=== PATIENT | male | born 1955 | race Caucasian/White ===

== ENCOUNTER 2020-06-13 19:23 | Emergency (ER) | payer OTHER ==
[2020-06-13 20:57] LABS: HEMOGLOBIN 11.9 gm/dl (14.0-17.5); RED BLOOD COUNT 3.95 M/UL (4.20-5.50); WHITE BLOOD COUNT 10.8 K/UL (4.5-11.0)
== END 2020-06-13 21:35 | disposition short-term general hospital (02) ==
LOC: ER1 19:23
PROVIDERS: Emergency Medicine
DX: I71.3 Abdominal aortic aneurysm, ruptured (principal); I10 Essential (primary) hypertension
CPT/HCPCS: 36430; 75635; 80053; 82550; 82553; 83605; 83690; 83735; 83874; 83880; 84100; 84484; 85025; 85610; 86850; 86900; 86901; 86920; 87040; 93005; 99285; P9016; P9037; Q9967